=== PATIENT | female | born 1975 | race Caucasian/White ===

== ENCOUNTER → 2018-10-13 | Outpatient (CLI) | payer OTHER | LOC: FIMAGING 13:03 | PROVIDERS: ATTEND Advanced Practice Midwife | DX: O09.511 Supervision of elderly primigravida, first trimester (principal); Z3A.12 12 weeks gestation of pregnancy ==

== ENCOUNTER → 2018-12-02 | Outpatient (CLI) | payer OTHER | LOC: FIMAGING 10:26 | PROVIDERS: ATTEND Advanced Practice Midwife | DX: Z36.82 Encounter for antenatal screening for nuchal translucency (principal); O09.522 Supervision of elderly multigravida, second trimester; Z3A.19 19 weeks gestation of pregnancy ==

== ENCOUNTER → 2019-02-26 | Outpatient (CLI) | payer OTHER | LOC: FIMAGING 14:16 ==